=== PATIENT | male | born 1970 | race Caucasian/White ===

== ENCOUNTER → 2019-12-08 15:00 | Outpatient (BNVA) | payer MEDICARE, SELFPAY | PROVIDERS: Family Provider Family Medicine; PCP Family Medicine; Visit Provider Family Medicine | DX: I10 Essential (primary) hypertension (principal); Z13.1 Encounter for screening for diabetes mellitus; R73.03 Prediabetes; Z13.220 Encounter for screening for lipoid disorders; Z13.6 Encounter for screening for cardiovascular disorders; Z68.44 Body mass index [BMI] 60.0-69.9, adult | CPT/HCPCS: 80053; 80061; 83036; 84443 ==

== ENCOUNTER → 2020-11-23 09:02 | Outpatient (BNVA) | payer MEDICARE, SELFPAY | PROVIDERS: Family Provider Family Medicine; PCP Family Medicine; Visit Provider Family Medicine | DX: Z13.6 Encounter for screening for cardiovascular disorders (principal); R73.03 Prediabetes; L03.115 Cellulitis of right lower limb; I10 Essential (primary) hypertension; Z13.220 Encounter for screening for lipoid disorders; L27.0 Generalized skin eruption due to drugs and medicaments taken internally | CPT/HCPCS: 80053; 80061; 83036; 85025 ==

== ENCOUNTER → 2021-10-25 08:37 | Outpatient (BNVA) | payer MEDICARE, SELFPAY | PROVIDERS: Family Provider Family Medicine; PCP Family Medicine; Visit Provider Family Medicine | DX: M54.10 Radiculopathy, site unspecified (principal); F34.1 Dysthymic disorder; E11.9 Type 2 diabetes mellitus without complications; I10 Essential (primary) hypertension; Z13.220 Encounter for screening for lipoid disorders; Z13.6 Encounter for screening for cardiovascular disorders | CPT/HCPCS: 80053; 80061; 83036 ==

== ENCOUNTER → 2021-10-26 10:55 | Outpatient (BNVA) | payer MEDICARE, SELFPAY | PROVIDERS: Family Provider Family Medicine; PCP Family Medicine; Visit Provider Family Medicine | DX: M54.10 Radiculopathy, site unspecified (principal); M47.897 Other spondylosis, lumbosacral region | CPT/HCPCS: 72100 ==

== ENCOUNTER → 2022-04-27 08:42 | Outpatient (BNVA) | payer MEDICARE, SELFPAY | PROVIDERS: Family Provider Family Medicine; PCP Family Medicine; Visit Provider Anesthesiology Pain Medicine | DX: M47.816 Spondylosis without myelopathy or radiculopathy, lumbar region (principal); M51.16 Intervertebral disc disorders with radiculopathy, lumbar region; M79.605 Pain in left leg | CPT/HCPCS: 99205 ==

== ENCOUNTER → 2022-05-18 14:03 | Outpatient (BNVA) | payer MEDICARE, SELFPAY | PROVIDERS: Family Provider Family Medicine; PCP Family Medicine; Visit Provider Anesthesiology Pain Medicine | DX: M54.16 Radiculopathy, lumbar region (principal) | CPT/HCPCS: 64483; 64484; J1100; J3490 ==

== ENCOUNTER → 2022-06-14 09:13 | Outpatient (BNVA) | payer MEDICARE, SELFPAY | PROVIDERS: Family Provider Family Medicine; PCP Family Medicine; Visit Provider Family Medicine | DX: I10 Essential (primary) hypertension (principal); E11.9 Type 2 diabetes mellitus without complications; M54.10 Radiculopathy, site unspecified; F34.1 Dysthymic disorder; Z68.43 Body mass index [BMI] 50.0-59.9, adult; I16.0 Hypertensive urgency | CPT/HCPCS: 80053; 83036 ==

== ENCOUNTER → 2024-05-01 08:43 | Outpatient (BNVA) | payer MEDICARE, SELFPAY | PROVIDERS: Visit Provider Orthopaedic Surgery | DX: Z98.1 Arthrodesis status (principal) | CPT/HCPCS: 99024 ==

== ENCOUNTER 2024-05-21 07:50 | Outpatient (RCR) | payer MEDICARE, SELFPAY | END 2024-05-23 23:59 | disposition home or self-care (01) | LOC: MPT 07:50 | PROVIDERS: PCP Family Medicine; Visit Provider Student in an Organized Health Care Education/Training Program | DX: G81.91 Hemiplegia, unspecified affecting right dominant side (principal); M54.2 Cervicalgia; M25.511 Pain in right shoulder; Z47.89 Encounter for other orthopedic aftercare | CPT/HCPCS: 97110; 97162 ==

== ENCOUNTER → 2024-05-22 13:09 | Outpatient (BNVA) | payer MEDICARE, SELFPAY | PROVIDERS: PCP Family Medicine; Visit Provider Orthopaedic Surgery | DX: Z98.1 Arthrodesis status (principal) | CPT/HCPCS: 72040; 99024 ==

== ENCOUNTER 2024-05-24 06:00 | Outpatient (RCR) | payer MEDICARE, SELFPAY | END 2024-06-23 23:59 | disposition home or self-care (01) | LOC: MPT 06:00 | PROVIDERS: PCP Family Medicine; Visit Provider Student in an Organized Health Care Education/Training Program | DX: G95.20 Unspecified cord compression (principal) | CPT/HCPCS: 97110; 97112 ==

== ENCOUNTER 2024-06-24 06:00 | Outpatient (RCR) | payer MEDICARE, SELFPAY | END 2024-07-23 23:59 | disposition home or self-care (01) | LOC: MPT 06:00 | PROVIDERS: PCP Family Medicine; Visit Provider Student in an Organized Health Care Education/Training Program | DX: G95.20 Unspecified cord compression (principal) | CPT/HCPCS: 97110; 97112; 97140 ==

== ENCOUNTER → 2024-07-03 13:10 | Outpatient (BNVA) | payer MEDICARE, SELFPAY | PROVIDERS: PCP Family Medicine; Visit Provider Orthopaedic Surgery | DX: Z98.1 Arthrodesis status (principal) | CPT/HCPCS: 72040; 99024 ==

== ENCOUNTER 2024-07-24 05:00 | Outpatient (RCR) | payer MEDICARE, SELFPAY | END 2024-08-23 23:55 | disposition home or self-care (01) | LOC: MPT 05:00 | PROVIDERS: PCP Family Medicine; Visit Provider Student in an Organized Health Care Education/Training Program | DX: G95.20 Unspecified cord compression (principal) | CPT/HCPCS: 97110; 97140 ==

== ENCOUNTER 2024-08-21 14:11 | Inpatient (IN) | payer MEDICARE, SELFPAY ==
[2024-08-21] VITALS (19 sets, daily range): BP systolic 131–195; BP diastolic 84–127; PULSE 56–78; RESP 9–40; TEMP 36.4–36.5; O2SAT 92–100; BMI 56.9; BMI 57.3
--- NOTE | 2024-08-21 14:15 | CT_ITS ---
WS: [id number] CT scan of the head, 08/21/2024 Clinical Data: NAUSEA/VOMITING Comparison: None. DLP: 1143.[address] scans at [facility] use at least one of these dose optimization techniques: automated exposure control; mA and/or kV adjustment per patient size (includes targeted exams where dose is matched to clinical indication); or iterative reconstruction. Findings: The ventricular system is normal without shift. No recent infarct or hemorrhage is seen. There are no abnormal intracerebral masses. The cerebellum and brainstem are not remarkable. Bony windows of the skull and skull base show no fractures or erosions. The mastoid air cells, internal auditory canals, sella turcica, intraorbital contents, and paranasal sinuses are unremarkable. There are several soft tissue nodules in the subcutaneous tissue near the vertex. CT/CT head thrombolytic 82246 Impression: Negative CT scan of the head
--- NOTE | 2024-08-21 14:18 | CT_ITS ---
WS: [id number] CTA scan of the head and neck. Additional two-dimensional coronal and sagittal reconstruction along with MIP images was performed. 08/21/2024 Clinical Data: stroke like symptoms Comparison: None. DLP: 1379.[address] scans at [facility] use at least one of these dose optimization techniques: automated exposure control; mA and/or kV adjustment per patient size (includes targeted exams where dose is matched to clinical indication); or iterative reconstruction. Findings: The carotid arteries bifurcate normally into the internal carotid arteries. The vertebral arteries appear patent but small. There is no lymphadenopathy within the neck. The intracerebral circulation shows that the internal carotid arteries bifurcate into the anterior and middle cerebral arteries. The basilar arterial system is normal. No aneurysms are seen. There is no prevertebral soft tissue swelling. The cervical spine shows a anterior cervical disc fusion. The intraorbital contents, paranasal sinuses, internal auditory canals and sella turcica are normal. The parotid glands are normal. The parapharyngeal areas are unremarkable. The larynx is symmetrical. The thyroid gland shows normal enhancement. CT/CT angio headneck* [id number] Impression: 1. Normal carotid circulation of the neck with normal bifurcations. 2. Small but probably patent vertebral arteries. 3. Normal intracerebral circulation.
--- NOTE | 2024-08-21 14:20 | P.PNCC_ITS ---
Stroke Alert Activation ED Arrival Date: 08/21/24 ED Arrival Time: 14:10 ED Physican at Bedside: 14:10 Last Known Normal/at Baseline: 3-4 hours ago Other Last Known Well Infomation: He got into the car at 11:00 to come to an appointment for neurology checkup. As he was walking to the car he suddenly developed profound vertigo and vomited. He has experienced vertigo in the past but nothing like this. He saw an ENT 10 years ago and describes having had an Veronika maneuver at that time. He denies numbness, tingling or dysarthria. He denies diplopia although he has left 6th nerve palsy on exam and has diplopia on far left gaze. He has sustained nystagmus. His nystagmus is rotational, clockwise and worst on left gaze. He has incomplete abduction of the left eye on multiple exams, consistent with a left 6th nerve palsy and of great concern for stroke. Patient had previous cervical fusion. He previously herniated cervical disc by turning his head. I think we need to look for vertebral artery dissection prior to proceeding with TNK. Stroke Alert Activated by: Dr. Crow Stroke Alert Activation Time: 14:05 Stroke MD @ Bedside Time: 14:00 NIH Stroke Scale Time: 14:00 NIH stroke score NIHSS: Level Of Consciousness - 1a: 0 Level Of Consciousness Questions - 1b: Both Correct Level Of Consciousness Commands - 1c: Both Correct Best Gaze - 2: Partial Gaze Palsy Visual Groves - 3: No Visual Loss Facial Palsy - 4: Normal Motor Arm Right - 5: No Drift Motor Arm Left - 5: No Drift Motor Leg Right - 6: No Drift Motor Leg Left - 6: No Drift Limb Ataxia - 7: Absent Sensory - 8: Normal Best Language - 9: No Aphasia Dysarthia - 10: Normal Extinction And Inattention - 11: 0 Score: Total Score: 1 Stroke Alert Data/Treatment Time to CT of Head: 14:15 CT Results Time: 14:34 CT Impression: Normal Stroke Risk Factors: hypertension, obesity and diabetes mellitus tPA Started Date: 08/21/24 tPA Started Time: tPA Started - Time: 14:49 tPA Admin Prior to Arrival: No Patient & Family Educated on: Treament Plan and tPA Risks/Benefits Other Patient & Family Education: Patient's blood pressure was elevated and he received labetalol which imposed a delay on treatment Other Information: I called the stroke alert from the office and we took him straight to CT. His CT head was unremarkable. We could not access an IV. Finally the IV was accessed and we went ahead with CTA because he was on the table and it was only a few minutes delay. His blood pressure was elevated and he required labetalol prior to bolus of TNK. I informed him of the risk including 6 out of 100 risk of hemorrhage without increase in morbidity or mortality. Patient continues to display nystagmus that is worst in the left gaze with intermittent left 6th nerve palsy of concern for brainstem ischemia. His CTA does not include lower aspect of the vertebral arteries and cannot exclude a dissection. Radiologist report is pending. Critical Care Time Critical Care Time: 30 - 74 mins A&P Assessment and plan (1) Brainstem stroke: Patient presents with acute onset of severe ataxia to the point that he is unable to ambulate and sustained nystagmus. His nystagmus does not fatigue and is most prominent when he looks up and to the left. He has weakness of the left abductor consistent with left 6th nerve palsy. This is brainstem ischemia until proven otherwise. Patient received TNK with delay imposed by his hypertension, the placement of an IV (very difficult stick) and transferring him from the clinic to the CT scanner. 45 minutes Door to needle Plan Admit ICU, treat his vertigo with benzodiazepines and antinausea medication. The patient has lost quite a bit of weight on tirzepatide. Check vitamin levels. PDMP PDMP Reviewed: Not Reviewed Coding Level of Care Code Acute Code for [facility] Diagnoses Brainstem stroke I63.9
--- NOTE | 2024-08-21 14:27 | ED_ITS ---
HPI - Neuro Symptoms/Deficit 2 General: Chief Complaint: Neuro Symptoms/Deficit Stated Complaint: stroke alert Time Seen by Provider: 08/21/24 14:13 History of Present Illness: 54-year-old male presents to the emergen cy room as a stroke alert from the medical office building at Dr. Crow's office. He suddenly had episode of dizziness blurry vision nausea and vomiting when he got into a car. He states he chronically has dizziness but this is much worse than usual. His last known well was 11am . He previously had a cervical disc that required discectomy and fusion. Dr. Crow was concerned about a possible vertebral artery dissection or occlusion. Associated symptoms: Deny chest pain Related Data Home Medications ?Medication ?Instructions ?Recorded ?Confirmed acetaminophen 500 mg tablet 500 mg PO Q6H PRN Pain 08/21/24 (Tylenol Extra Strength) duloxetine 60 mg capsule,delayed 60 mg PO BEDTIME 07/2508/21/24 release ibuprofen 800 mg tablet 800 mg PO Q8H PRN Pain 08/2108/21/24 prednisolone acetate 1 % eye 1 drp ophthalmic (eye) BI D PRN 08/21/24 08/21/24 drops,suspension irritation tirzepatide 5 mg/0.5 mL 5 mg SUBCUT Q7D 08/21/24 subcutaneous pen injector (Davina) Previous Rx's ?Medication ?Instructions ?Recorded oxycodone 5 mg tablet 5 mg PO Q6H PRN pain 7 days #28 05/22/24 tabs Allergies Allergy/AdvReac Type Severity Reaction Status Date / Time No Known Allergies Allergy Verified 08/21/24 12:56 Review of Systems 2 Const: Denies: fever(s) or chills Card: Denies: chest pain Resp: Denies: dyspnea GI: Denies: abdominal pain : Denies: dysuria, urinary frequency or urinary urgency Musc: Denies: neck pain or back pain Skin/Breast: Denies: rash Neuro: Reports: dizziness PFSH ED 2 PFSH: Medical History Type 2 diabetes mellitus Right leg DVT Provoked, if occurs again he needs life long anticoag. Herniation of cervical intervertebral disc with radiculopathy MRSA colonization Hypertension ROCK (obstructive sleep apnea) Vision changes Surgical History Status post cervical spinal fusion S/P orchiopexy R. testicle Family History Mother Diverticulitis Social History Smoking and tobacco/nicotine status: unknown if used tobacco/nicotine Second hand smoke exposure: No Alcohol intake: current Alcohol intake frequency: holidays/special occasions only Substance/Drug Use: current Other substance/drug use details: Marijuana vaping or gummies for sleep. NIH stroke score 2 NIHSS: Level Of Consciousness - 1a: 0 Level Of Consciousness Questions - 1b: Both Correct Level Of Consciousness Commands - 1c: Both Correct Best Gaze - 2: Normal Visual Groves - 3: No Visual Loss Facial Palsy - 4: N ormal Motor Arm Right - 5: No Drift Motor Arm Left - 5: No Drift Motor Leg Right - 6: No Drift Motor Leg Left - 6: No Drift Limb Ataxia - 7: A bsent Sensory - 8: Normal Best Language - 9: No Aphasia Dysarthia - 10: Normal Extinction And Inattention - 11: 0 Score: Total Score: 0 Physical Exam 2 Const: COMMON NORMALS: no acute distress GENERAL APPEARANCE: cooperative and comfortable ORIENTATION/CONSCIOUSNESS: Yes awake, Yes oriented to person, Yes oriented to place and Yes oriented to time HENMT: COMMON NORMALS: normocephalic, atraumatic and hearing grossly normal bilaterally HEAD & SCALP: normocephalic and atraumatic Eye: OTHER: Rotary nystagmus with upward gaze nystagmus to the left and to the right more noticeable to the right side. Resp: COMMON NORMALS: normal respiratory effort, No retractions, No use of accessory muscles and clear to auscultation bilaterally AUSCULTATION: clear to auscultation bilaterally Cardio: COMMON NORMALS: regular rate, regular rhythm and No murmurs present (Cardio) RATE: regular rate RHYTHM: regular rhythm GI: COMMON NORMALS: Soft to palpation and No hepatosplenomegaly present A USCULTATION: Yes normoactive bowel sounds PALPATION: Yes Soft to palpation, No Tenderness to palpation present (GI), No Guarding due to palpation present (GI) and Yes No hepatosplenomegaly present Extremity: COMMON NORMALS: normal to inspection, capillary refill normal, no clubbing, cyanosis or edema, no calf tenderness and no pedal edema Neuro: SENSORIUM/ORIENTATION: Yes oriented to person, Yes oriented to place and Yes oriented to time Skin: COMMON NORMALS: no rashes or lesions noted GENERAL SKIN EXAM: no rashes or lesions noted Course 2 Vital Signs: Vital signs: Vital Signs Temperature 97.1 F L 08/22/24 04:13 Pulse Rate 59 L 08/22/24 05:43 Respiratory Rate 16 08/22/24 05:30 Blood Pressure 130/79 08/22/24 05:30 Pulse Oximetry 96 08/22/24 05:30 Oxygen Delivery Me thod Room Air 08/21/24 17:58 MDM - Neuro Symptoms/Deficit Medical Decision Making Stroke score is 0 presenting symptoms, concerning for posterior circulation stroke. Dr. Crow initially was seeing the patient in her office she did come to the emergency room and seen the patient he has very impressive nystagmus Dr. Crow is recommending TNKase this was given in the ER patient continues to be monitored he continued to have symptoms. I did give him a dose of Ativan to help with his dizziness which did improve slightly. Will admit discussed with hospitalist orders written Medical Records I reviewed the patient's medical records. Lab Data I reviewed the patient's lab results. 08/21/24 14:55 08/21/24 14:[address] 08/21/24 14:15 Impression: Negative CT scan of the head Head/Neck CTA 08/21/24 14:18 Impression: 1. Normal carotid circulation of the neck with normal bifurcations. 2. Small but probably patent vertebral arteries. 3. Normal intracerebral circulation. Laboratory Results WBC 7.97 10^3/uL (3.29-11.43) 08/21/24 14:55 RBC 4.90 10^6/uL (3.85-5.65) 08/21/24 14:55 Hgb 14.40 g/dL (11.27-16.99) 08/21/24 14:55 Hct 45.2 % (37-53) 08/21/24 14:55 MCV 92.2 fl (82-101) 08/21/24 14:55 MCH 29.4 pg (27-33) 08/21/24 14:55 MCHC 31.9 g/dL (30-55) 08/21/24 14:55 RDW 13.1 % (12.1-15.1) 08/21/24 14:55 Plt Count 197 10^3/cmm (157-399) 08/21/24 14:55 MPV 10.4 fL (7.4-10.4) 08/21/24 14:55 Neut % (Auto) 81.9 % 08/21/24 14:55 Lymph % (Auto) 12.5 % 08/21/24 14:55 Rawlins % (Auto) 4.0 % 08/21/24 14:55 Eos % (Auto) 0.8 % 08/21/24 14:55 Baso % (Auto) 0.4 % 08/21/24 14:55 Neut # (Auto) 6.53 10^3/uL (1.8-7.7) 08/21/24 14:55 Lymph # (Auto) 1.0 10^3/uL (0.8-4.8) 08/21/24 14:55 Rawlins # (Auto) 0.3 10^3/uL (0.2-0.9) 08/21/24 14:55 Eos # (Auto) 0.1 10^3/uL (0.0-0.8) 08/21/24 14:55 Baso # (Auto) 0.0 10^3/uL (0.0-0.1) 08/21/24 14:55 Nucleated RBC % (auto) 0 % 08/21/24 14:55 Nucleated RBCs # 0.0 /100WBC 08/21/24 14:55 ESR 31 mm/hr (0-10) H 08/21/24 14:55 PT 13.70 SECONDS (12.1-14.9) 08/21/24 14:55 INR 0.98 (0.8-1.2) 08/21/24 14:55 APTT 26.5 SECONDS (23.9-36.7) 08/21/24 14:55 Sodium 134 mmol/L (136-145) L 08/21/24 14:55 Potassium 4.2 mmol/L (3.5-5.1) 08/21/24 14:55 Chloride 98 mmol/L (98-107) 08/21/24 14:55 Carbon Dioxide 21 mmol/L (22-29) L 08/21/24 14:55 Anion Gap 19.2 (5-19) H 08/21/24 14:55 BUN 10 mg/dL (6-20) 08/21/24 14:55 Creatinine 0.7 mg/dL (0.7-1.2) 08/21/24 14:55 GFR Calculation 118.4 mL/min (90-130) 08/21/24 14:55 Glucose 130 mg/dL (65-115) H 08/21/24 14:55 Calculated Osmolality 279 mOsm/kg (285-295) L 08/21/24 14:55 Calcium 9.2 mg/dL (8.5-10.5) 08/21/24 14:55 Total Bilirubin 0.5 mg/dL (0.15-1.2) 08/21/24 14:55 AST 35 U/L (0-40) 08/21/24 14:55 ALT 33 U/L (0-41) 08/21/24 14:55 Alkaline Phosphatase 92 U/L (40-130) 08/21/24 14:55 C-Reactive Protein 12.3 mg/L (0.0-4.9) H 08/21/24 14:55 Total Protein 8.2 g/dL (6.6-8.7) 08/21/24 14:55 Albumin 4.4 g/dL (3.5-5.2) 08/21/24 14:55 Globulin 3.8 g/dL (1.3-4.6) 08/21/24 14:55 Procalcitonin 0.19 ng/mL (0-0.5) 08/21/24 14:55 All radiology interpretation(s) finalized by discharge Discharge Plan Discharge Patient Disposition: Admitted As Inpatient Admit Provider: Rico Baltazar Clinical Impression: Posterior circulation stroke, Type 2 diabetes mellitus Condition: Stable Coding Level of Care Code ED Psychology Instructor for Calvin Vyas
[2024-08-21] MEDS: iohexol 350 mg/mL 500 mL Btl (per mL) IV (14:44)
[2024-08-21] MEDS: tenecteplase 50mg Kit (STROKE) 25 MG IVP (14:49)
[2024-08-21] MEDS: labetalol 5 mg/mL SDV 20mL 10 MG IVP (14:55)
[2024-08-21 15:06] LABS: Basophils % 0.4 %; Eosinophils # 0.1 10^3/uL (0.0-0.8); Eosinophils % 0.8 %; Hematocrit 45.2 % (37-53); Lymphocytes % 12.5 %; Mean Corpuscular HGB Conc 31.9 g/dL (30-55); Mean Corpuscular Hemoglobin 29.4 pg (27-33); Mean Corpuscular Volume 92.2 fl (82-101); Mean Platelet Volume 10.4 fL (7.4-10.4); Monocytes # 0.3 10^3/uL (0.2-0.9); Neutrophils # 6.53 10^3/uL (1.8-7.7); Neutrophils % 81.9 %; Nucleated Red Blood Cells % 0 %; Platelet Count 197 10^3/cmm (157-399); Red Cell Distribution Width 13.1 % (12.1-15.1); White Blood Count 7.97 10^3/uL (3.29-11.43)
--- NOTE | 2024-08-21 15:14 | ECG_ITS ---
[facility]: 2024-08-21 Pat Name: Omar Isaac Department: Room: Gender: Male Lapel Padder: : 1970 Requested By: Evan Adame Order Number: [id number] Dino MD: Antonio Eric M.D. Measurements Intervals Huggins Rate: 56 P: 19 UT: 183 QRS: 22 QRSD: 87 T: 40 QT: 400 QTc: 388 Interpretive Statements SINUS BRADYCARDIA Compared to ECG 04/15/2024 17:00:33 Sinus rhythm no longer present Electronically Signed On 08-26-2024 11:49:52 CDT by Antonio Eric M.D. [email or web address]
[2024-08-21] MEDS: LORazepam 1 MG/0.5 ML injection IVP (15:19)
[2024-08-21 15:23] LABS: INR 0.98 (0.8-1.2)
[2024-08-21 15:24] LABS: Partial Thromboplastin Time 26.5 SECONDS (23.9-36.7)
[2024-08-21 15:27] LABS: Alanine Aminotransferase 33 U/L (0-41); Albumin Level 4.4 g/dL (3.5-5.2); Alkaline Phosphatase 92 U/L (40-130); Anion Gap 19.2 (5-19); Aspartate Amino Transferase 35 U/L (0-40); Blood Urea Nitrogen 10 mg/dL (6-20); Calcium 9.2 mg/dL (8.5-10.5); Carbon Dioxide 21 mmol/L (22-29); Chloride 98 mmol/L (98-107); Globulin 3.8 g/dL (1.3-4.6); Glomerular Filtration Rate 118.4 mL/min (90-130); Glucose 130 mg/dL (65-115); Osmolality Calculated 279 mOsm/kg (285-295); Potassium 4.2 mmol/L (3.5-5.1); Sodium 134 mmol/L (136-145); Total Bilirubin 0.5 mg/dL (0.15-1.2); Total Protein 8.2 g/dL (6.6-8.7)
--- NOTE | 2024-08-21 16:33 | P.HP_ITS ---
Providers/Chief Complaint 2 Primary Care Provider: David Segura MD Chief Complaint: stroke alert History of Present Illness Omar Isaac is a 54 year old male with a past medical history of ROCK on CPAP, history of cervical spinal cord compression, chronic back pain, who presents [facility] due to dizziness, nausea. Patient's last known well normal was about -02 22, he was getting into his car to come to Dr. Crow's office, for neurology follow-up, they cannot do the car he sat in the back passenger side seat, started developing dizziness, vertigo, nausea, vomiting, no focal weakness, no lightheadedness, dizziness, when they arrived at [facility], he was unable to get out of car due to dizziness so family members had to put him into a wheelchair he was able to get into the wheelchair with the help of family, and he was wheeled in to the neurologist office, he did report blurry vision, double vision at some point. Patient was seen by Dr. Crow at about 2 PM, stroke alert called at about 2:05, on examination patient had rotation of neck segments, diplopia on the left far gaze, concern for left nerve nerve palsy,, and a stroke scale 1, concern for posterior circulation stroke, CT head within normal limits, CTA head and neck within normal limits rule out vertebral artery dissection, after discussing risk benefits of TNKase, TNKase was given at about 2:49 PM, patient was examined, he is alert oriented x 3, following all commands still feeling a bit nauseous, still having some dizziness, he does have horizontal nystagmus, he does complain of double vision upon the lateral movement, on the left Review of Systems 2 Const: Denies: fever(s) or chills Card: Denies: chest pain Resp: Denies: dyspnea GI: Denies: abdominal pain Medications/Allergies Home Medications ?Medication ?Instructions ?Recorded ?Confirmed ?Last Taken ?Type acetaminophen 500 mg tablet 500 mg PO Q6H PRN Pain 08/21/24 Unknown History (Tylenol Extra Strength) oxycodone 5 mg tablet 5 mg PO Q6H PRN pain 7 days #28 05/22/24 08/21/24 Unknown Rx tabs duloxetine 60 mg capsule,delayed 60 mg PO BEDTIME 07/2508/21/24 Unknown History release ibuprofen 800 mg tablet 800 mg PO Q8H PRN Pain 08/2108/21/24 Unknown History prednisolone acetate 1 % eye 1 drp ophthalmic (eye) BI D PRN 08/21/24 08/21/24 Unknown History drops,suspension irritation tirzepatide 5 mg/0.5 mL 5 mg SUBCUT Q7D 08/21/2408/16/24 History subcutaneous pen injector (Davina) Allergies Allergy/AdvReac Type Severity Reaction Status Date / Time No Known Allergies Allergy Verified 08/21/24 12:56 PFSH Acute 2 PFSH: Medical History (Updated 08/21/24 @ 15:40 by Evan Wray DO) Type 2 diabetes mellitus Right leg DVT Provoked, if occurs again he needs life long anticoag. 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 testicle Family History Mother Diverticulitis Social History Smoking and tobacco/nicotine status: unknown if used tobacco/nicotine Second hand smoke exposure: No Alcohol intake: current Alcohol intake frequency: holidays/special occasions only Substance/Drug Use: current Other substance/drug use details: Marijuana vaping or gummies for sleep. Vitals/I&O/Wt Last Vital Signs Temp 97.5 F L 08/21/24 14:19 Pulse 56 L 08/21/24 15:27 Resp 15 08/21/24 15:24 BP 138/84 08/21/24 15:27 Pulse Ox 92 08/21/24 15:27 O2 Del Method Room Air 08/21/24 14:19 08/21/24 08/21/24 08/21/24 06:59 14:59 22:59 Intake Total 0 / 0 Balance 0 / 0 Weight last 48 hrs Weight 170.097 kg Weight 170.097 kg Physical Exam 2 Const: COMMON NORMALS: no acute distress and patient oriented x3 HENMT: COMMON NORMALS: normocephalic HEAD & SCALP: normocephalic Eye: COMMON NORMALS: Equal, round and reactive pupils present OTHER: Horizontal nystagmus Left cranial nerve palsy Double vision on left gaze Neck/C-Spine: COMMON NORMALS: no JVD Resp: COMMON NORMALS: normal respiratory effort, No retractions, No use of accessory muscles and clear to auscultation bilaterally AUSCULTATION: clear to auscultation bilaterally Cardio: COMMON NORMALS: no JVD, regular rate, regular rhythm, S1 normal heart sound present and S2 normal heart sound present RATE: regular rate RHYTHM: regular rhythm HEART SOUNDS: S1 normal heart sound present and S2 normal heart sound present GI: COMMON NORMALS: Normal to inspection, nondistended, normoactive bowel sounds present, Soft to palpation and non-tender PALPATION: Yes No hepatosplenomegaly present Extremity: COMMON NORMALS: no calf tenderness and no pedal edema Neuro: COMMON NORMALS: patient oriented x3, CN's II-XII intact bilaterally, moves all extremities, no focal motor deficits and no sensory deficits noted OTHER: Horizontal nystagmus Left cranial nerve palsy 6th nerve palsy Double vision on left gaze Facial droop No slurring of his words No focal weakness, equal strength bilateral upper lower extremities Psych: COMMON NORMALS: mental status grossly normal Data 08/21/24 14:55 08/21/24 14:55 A&P Assessment and plan (1) Posterior circulation stroke: (2) Brainstem stroke: Plan Acute CVA -Concern for brainstem stroke, posterior circulation stroke -Concerns for left cranial 6th nerve palsy, diplopia, horizontal nystagmus, nausea, dizziness -NIH stroke scale 1 -Last known well normal 11-11 30 a.m. -tPA given 2:49 p.m. - Status post TNKase - Head CT no acute findings - CT head and neck no acute findings Plan - Admit to ICU - TNKase precautions - Treat systolic blood pressure greater than 180 or diastolic greater than 105 - Telemetry monitoring - Neurochecks - NIH stroke scale - Repeat head CT in the morning - Start aspirin [address] within normal limits -*Lovenox for DVT prophylaxis if head CT within normal limits - Start atorvastatin - IV fluids - PT OT, speech therapy eval - Patient is DNR/DNI - SCDs for DVT prophylaxis for now PDMP PDMP Reviewed: Not Reviewed Attestations 2 Medical Necessity Statement*: Patient requires hospitalization acute CVA, status post TNKase, inpatient, greater than 2 midnights Diagnoses Posterior circulation stroke I63.50 Brainstem stroke I63.9
--- NOTE | 2024-08-21 17:37 | USCV_ITS ---
NOTE: Report was unsigned for reason: Order was edited. Original Signature date and time was: 08/22/24 @ 1446 Omar Isaac Age: 54 Gender: M : 1970 Exam Date: 08/21/2024 22:48 Ordering Phys: Rico Baltazar MD Technologist: KATHE Exam Location: [facility] [place] Indication: acute stroke, morbid obesity, 5ft 8in, 375lbs, ROCK CPAP dependent in ICU-6 BP: 171 / 127 HR: 57 Rhythm: Sinus Technical Quality: poor quality even with [employer] MEASUREMENTS (Male / Female) Normal Values 2D ECHO LV Diastolic Diameter PLAX 4.4 cm 4.2 - 5.9 / 3.9 - 5.3 cm IVS Diastolic Thickness 1.6 cm 0.6 - 1.0 / 0.6 - 0.9 cm IVS Systolic Thickness 1.8 cm LVPW Diastolic Thickness 2.0 cm 0.6 - 1.0 / 0.6 - 0.9 cm LVPW Systolic Thickness 2.2 cm LVOT Diameter 1.9 cm LV Ejection Fraction 2D Teich 62.0 % LV Ejection Fraction MOD 4C 63.7 % LV Ejection Fraction MOD 2C 58.4 % LV Ejection Fraction 2C AL 58.7 % LA Diameter 3.5 cm Aorta at Sinotubular Diameter 2.7 cm IVC Diameter 1.4 cm DOPPLER AV Peak Velocity 138.0 cm/s LVOT Peak Velocity 93.0 cm/s AV Area Cont Eq vti 2.1 cm squared AV Area Cont Eq pk 1.9 cm squared MV Peak Velocity 102.0 cm/s MV Area PHT 3.1 cm squared Mitral E to A Ratio 1.0 FINDINGS Left Ventricle Right Ventricle Right Atrium Left Atrium Mitral Valve Aortic Valve Tricuspid Valve Pulmonic Valve Pericardium Aorta IVC CONCLUSIONS Technically very limited quality echocardiogram because of poor ultrasonic windows. LV systolic function is grossly normal Valvular stuctures are not visualized. Antonio Eric MD (Electronically Signed) Final Date: 22 Aug 2024 14:46 S MTDD
[2024-08-21 17:54] LABS: Procalcitonin 0.19 ng/mL (0-0.5)
[2024-08-21 18:08] LABS: C Reactive Protein 12.3 mg/L (0.0-4.9)
[2024-08-21 18:26] LABS: Erythrocyte Sedimentation Rate 31 mm/hr (0-10)
[2024-08-21] MEDS: sodium chloride 0.9% 1,000 ML 100 ML IV (18:44)
[2024-08-21] MEDS: atorvastatin 40 mg Tablet 20 MG PO (20:48)
[2024-08-21] MEDS: duloxetine 60 mg Capsule PO (20:48)
[2024-08-22] VITALS (25 sets, daily range): BP systolic 130–195; BP diastolic 64–100; PULSE 57–73; RESP 14–27; TEMP 36.2–36.8; O2SAT 90–97
[2024-08-22] MEDS: sodium chloride 0.9% 1,000 ML 100 ML IV (04:10)
[2024-08-22 06:52] LABS: Chol HDL Ratio 4.86 mg/dL (1.0-5.00); Cholesterol 180 mg/dL (0-200); HDL Cholesterol 37 mg/dL (60-100); LDL Cholesterol Calculated 122 mg/dL (50-129); Triglycerides 107 mg/dL (0-150)
--- NOTE | 2024-08-22 06:59 | PC.NURSE ---
residency program coordinator note- 08/21-responded and participated in stroke alert, gave patient and family stroke education book.
--- NOTE | 2024-08-22 07:05 | PC.NURSE ---
Shift change NIH completed.
[2024-08-22 07:10] LABS: Estmated Average Glucose 117; Hemoglobin A1C 5.7 % (4.0-6.0)
--- NOTE | 2024-08-22 09:00 | MR_ITS ---
WS: [id number] MRI HEAD WITH CONTRAST TECHNIQUE: Sagittal T1, T2 axial, T2 axial FLAIR, axial susceptibility weighted imaging, axial diffusion weighted images, and coronal T2 images were obtained. Pre and post-T1 axial and post T1 coronal images. ADC and FSPGR images. CLINICAL INFORMATION: cva, vasculitis COMPARISON: CT 08/21/2024 FINDINGS: Some images degraded by motion artifact. Fast imaging was performed. Scattered areas of punctate susceptibility artifact only seen on the fast T2 imaging likely due to technique artifact. No abnormalities on the gradient imaging. No evidence of restricted diffusion to suggest acute ischemia. No hemosiderin on the gradient imaging. Normal posterior fossa. Normal vascular flow voids at the skull base. No extra-axial fluid collections. No evidence of mass or mass effect. Mastoid air cells are well aerated. Normal posterior nasopharynx. No abnormal gadolinium enhancement considering motion artifact. Normal dural venous sinuses. MR/MR head wo/w con [id number] IMPRESSION: Some images degraded by motion artifact. Fast imaging was performed which somewhat limits evaluation. No acute intracranial findings
[2024-08-22] MEDS: prednisoLONE 1% Op Susp 5 mL Btl 1 DROP EYE-BOTH ×2 (09:11→18:13)
[2024-08-22] MEDS: gadobenate dimeglumine 20 mL vial IV (10:11)
--- NOTE | 2024-08-22 15:55 | PC.SOCIAL ---
IMM updated IMM dated and initialed copy given to patient and Copy placed in chart.
--- NOTE | 2024-08-22 16:53 | CTR_ITS ---
PROCEDURE INFORMATION: Exam: CT Head Without Contrast Exam date and time: 08/22/2024 5:34 PM Age: 54 years old Clinical indication: Altered mental status/memory loss; Confusion or disorientation; Additional info: 24 hour sp tpa TECHNIQUE: Imaging protocol: Computed tomography of the head without contrast. Radiation optimization: All CT scans at this facility use at least one of these dose optimization techniques: automated exposure control; mA and/or kV adjustment per patient size (includes targeted exams where dose is matched to clinical indication); or iterative reconstruction. COMPARISON: MR head wo/w con [id number] 08/22/2024 9:55 AM RADIATION DOSE METRICS: Total DLP (mGy-cm): 1133.08 FINDINGS: Brain: The size and configuration of the ventricular system and cortical sulci are within normal limits for age. No acute intracranial hemorrhage or significant mass effect is seen. Cerebral ventricles: Normal in size, for age, and midline in position. Paranasal sinuses: There is mild chronic appearing mucosal inflammation in the ethmoid air cells bilaterally. No air-fluid levels are seen. Mastoid air cells: Visualized mastoid air cells are well aerated. Bones: Intact. No acute fracture detected. Soft tissues: Unremarkable. CT/CT head wo con* [id number] IMPRESSION: No acute intracranial process appreciated. If there is persistent clinical concern, MRI may be helpful for further evaluation.
--- NOTE | 2024-08-22 17:04 | P.PN_ITS ---
Subjective 2 Subjective: Patient was seen this morning, currently alert oriented x 3, following all commands, no nausea, vomiting, no fevers, chills, no neck pain, neck stiffness, denies any dizziness, denies any vertigo, does report intermittent blurry vision, no paresthesias, no focal weakness, no receptive aphasia, no productive aphasia, slurring of his words Vitals/I&O/Wt Last Vital Signs Temp 98.2 F 08/22/24 12:00 Pulse 69 08/22/24 13:00 Resp 19 H 08/22/24 13:00 BP 171/81 08/22/24 13:00 Pulse Ox 91 08/22/24 13:00 O2 Del Method Room Air 08/22/24 13:00 08/22/24 08/22/24 08/22/24 06:59 14:59 22:59 Intake Total 943.333 / 943.333 350 / 350 Output Total 700 / 700 1100 / 1100 Balance 243.333 / 243.333 -750 / -750 Weight last 48 hrs Weight 170.097 kg Weight 171 kg Weight 170.097 kg Weight 170.097 kg Physical Exam 2 Const: COMMON NORMALS: no acute distress and patient oriented x3 Resp: COMMON NORMALS: normal respiratory effort, No retractions, No use of accessory muscles and clear to auscultation bilaterally AUSCULTATION: clear to auscultation bilaterally Cardio: COMMON NORMALS: regular rate, regular rhythm, S1 normal heart sound present and S2 normal heart sound present RATE: regular rate RHYTHM: r egular rhythm HEART SOUNDS: S1 normal heart sound present and S2 normal heart sound present GI: COMMON NORMALS: Normal to inspection, nondistended, normoactive bowel sounds present and non-tender Extremity: COMMON NORMALS: no calf tenderness and no pedal edema Neuro: COMMON NORMALS: patient oriented x3, CN's II-XII intact bilaterally, moves all extremities and no focal motor deficits Psych: COMMON NORMALS: mental status grossly normal Data 08/21/24 14:55 08/21/24 14:55 A&P Assessment and plan (1) Posterior circulation stroke: (2) Brainstem stroke: Plan Acute CVA -Concern for brainstem stroke, posterior circulation stroke -Concerns for left cranial 6th nerve palsy, diplopia, horizontal nystagmus, nausea, dizziness -NIH stroke scale 1 -Last known well normal 11-11 30 a.m. -tPA given 2:49 p.m. - Status post TNKase - Head CT no acute findings - CT head and neck no acute findings - MRI brain no acute findings -Echocardiogram LV systolic function is normal Plan - Repeat head CT 24 hours status post tPA - TNKase precautions - Treat systolic blood pressure greater than 180 or diastolic greater than 105 - Telemetry monitoring - Neurochecks - NIH stroke scale - Start aspirin [address] within normal limits -*Lovenox for DVT prophylaxis if head CT within normal limits - Start atorvastatin - IV fluids discontinued - PT OT, speech therapy eval - Patient is DNR/DNI - SCDs for DVT prophylaxis for now Plan for today moved to medical floors, PT OT, speech therapy eval, PDMP PDMP Reviewed: Not Reviewed Attestations 2 Medical Necessity Statement*: Patient requires hospitalization for acute CVA, posterior circulation stroke Diagnoses Posterior circulation stroke I63.50 Brainstem stroke I63.9
[2024-08-22 18:34] LABS: INR 1.01 (0.8-1.2)
[2024-08-22 18:35] LABS: Fibrinogen 450 mg/dL (174-498)
[2024-08-22 18:37] LABS: Alanine Aminotransferase 28 U/L (0-41); Albumin Level 4.1 g/dL (3.5-5.2); Alkaline Phosphatase 76 U/L (40-130); Anion Gap 16.3 (5-19); Aspartate Amino Transferase 27 U/L (0-40); Blood Urea Nitrogen 9 mg/dL (6-20); Calcium 9.3 mg/dL (8.5-10.5); Carbon Dioxide 26 mmol/L (22-29); Chloride 99 mmol/L (98-107); Globulin 3.6 g/dL (1.3-4.6); Glomerular Filtration Rate 118.4 mL/min (90-130); Glucose 98 mg/dL (65-115); Osmolality Calculated 283 mOsm/kg (285-295); Potassium 4.3 mmol/L (3.5-5.1); Sodium 137 mmol/L (136-145); Total Bilirubin 0.6 mg/dL (0.15-1.2); Total Protein 7.7 g/dL (6.6-8.7)
[2024-08-22] MEDS: perflutren protein-a microsphr 0.22 mg/mL SDV 3 mL IV (18:37)
--- NOTE | 2024-08-22 18:53 | PC.NURSE ---
Shift summary: NIH completed . score of 0. No nystigmus noted at this time. Pt continues to state, as he has all day, he feels on the verge. No nausea noted. the first time out of bed slight dizziness noted but i resolved. His gait is steady he bears his weight well. Passed the speech therapy, now on regular diet. MRI completed today. [address] taken awaiting report. Pt has decent/appropriate appetite. He has urinated twice for a total of 1900. NO Bm noted. Family and friend have been in to visit. He uses his home CPAP when resting with eyes closed.
[2024-08-22 20:48] LABS: Basophils % 0.4 %; Eosinophils # 0.1 10^3/uL (0.0-0.8); Eosinophils % 1.2 %; Hematocrit 43.5 % (37-53); Lymphocytes # 1.5 10^3/uL (0.8-4.8); Lymphocytes % 21.7 %; Mean Corpuscular HGB Conc 32.2 g/dL (30-55); Mean Corpuscular Hemoglobin 29.5 pg (27-33); Mean Corpuscular Volume 91.6 fl (82-101); Mean Platelet Volume 10.3 fL (7.4-10.4); Monocytes # 0.4 10^3/uL (0.2-0.9); Monocytes % 5.2 %; Neutrophils # 4.75 10^3/uL (1.8-7.7); Neutrophils % 71.2 %; Nucleated Red Blood Cells % 0 %; Platelet Count 203 10^3/cmm (157-399); Red Blood Count 4.75 10^6/uL (3.85-5.65); Red Cell Distribution Width 13.1 % (12.1-15.1); White Blood Count 6.68 10^3/uL (3.29-11.43)
[2024-08-22] MEDS: duloxetine 60 mg Capsule PO (22:02)
[2024-08-22] MEDS: atorvastatin 40 mg Tablet PO (22:02)
[2024-08-22] MEDS: enoxaparin 40 mg/0.4 mL Syringe SUBCUT (22:02)
[2024-08-22] MEDS: aspirin 81 mg EC Tablet PO (22:02)
[2024-08-23] VITALS (17 sets, daily range): BP systolic 137–175; BP diastolic 75–117; PULSE 61–75; RESP 13–22; TEMP 36.4–37.1; O2SAT 90–94
[2024-08-23 04:21] LABS: Basophils % 0.3 %; Eosinophils # 0.1 10^3/uL (0.0-0.8); Eosinophils % 1.3 %; Hematocrit 42.4 % (37-53); Lymphocytes # 1.6 10^3/uL (0.8-4.8); Lymphocytes % 25.3 %; Mean Corpuscular HGB Conc 31.4 g/dL (30-55); Mean Corpuscular Hemoglobin 29.4 pg (27-33); Mean Corpuscular Volume 93.8 fl (82-101); Mean Platelet Volume 10.8 fL (7.4-10.4); Monocytes # 0.4 10^3/uL (0.2-0.9); Monocytes % 6.7 %; Neutrophils # 4.12 10^3/uL (1.8-7.7); Neutrophils % 66.1 %; Nucleated Red Blood Cells % 0 %; Platelet Count 187 10^3/cmm (157-399); Red Blood Count 4.52 10^6/uL (3.85-5.65); Red Cell Distribution Width 13.2 % (12.1-15.1); White Blood Count 6.24 10^3/uL (3.29-11.43)
[2024-08-23 04:45] LABS: Anion Gap 14.1 (5-19); Blood Urea Nitrogen 9 mg/dL (6-20); Calcium 9.3 mg/dL (8.5-10.5); Carbon Dioxide 27 mmol/L (22-29); Chloride 99 mmol/L (98-107); Creatinine Clr Calc Pharmacy 166.6482; Glomerular Filtration Rate 101.5 mL/min (90-130); Glucose 117 mg/dL (65-115); Osmolality Calculated 282 mOsm/kg (285-295); Potassium 4.1 mmol/L (3.5-5.1); Sodium 136 mmol/L (136-145)
[2024-08-23] MEDS: ondansetron 2 mg/ML SDV 2 mL 4 MG IVP (05:39)
[2024-08-23] MEDS: amlodipine 5 mg Tablet PO (09:07)
[2024-08-23] MEDS: chlorthalidone 25 mg Tablet PO (12:35)
--- NOTE | 2024-08-23 13:52 | PC.NURSE ---
Education both written and verbal provided to patient with two family/care takers at bedside regarding discharge instructions, medications, follow up appointments, blood pressure monitoring, S/S stroke and when to call 911. Patient and family returned demonstration of teaching. No questions at the time of discharge. Medications sent to patients preferred pharmacy.
--- NOTE | 2024-08-23 14:04 | P.DS_ITS ---
Discharge Providers Date of Admission: 08/21/24 16:57 Date of Discharge: August 23, 2024 Attending Provider at Admission: Rico Baltazar MD Attending Provider at Discharge: Rico Baltazar MD Primary Care Provider: David Segura MD Diagnoses at Discharge Discharge Diagnosis (1) Posterior circulation stroke: Status: Acute (2) Brainstem stroke: Status: Acute Reason for Visit Reason for Visit: stroke alert Hospital Course Hospital Course Omar Isaac is a 54 year old male with a past medical history of ROCK on CPAP, history of cervical spinal cord compression, chronic back pain, who presents [facility] due to dizziness, nausea. Patient's last known well normal was about 02-03, he was getting into his car to come to Dr. Crow's office, for neurology follow-up, they cannot do the car he sat in the back passenger side seat, started developing dizziness, vertigo, nausea, vomiting, no focal weakness, no lightheadedness, dizziness, when they arrived at [facility], he was unable to get out of car due to dizziness so family members had to put him into a wheelchair he was able to get into the wheelchair with the help of family, and he was wheeled in to the neurologist office, he did report blurry vision, double vision at some point. Patient was seen by Dr. Crow at about 2 PM, stroke alert called at about 2:05, on examination patient had rotation of neck segments, diplopia on the left far gaze, concern for left nerve nerve palsy,, and a stroke scale 1, concern for posterior circulation stroke, CT head within normal limits, CTA head and neck within normal limits rule out vertebral artery dissection, after discussing risk benefits of TNKase, TNKase was given at about 2:49 PM, patient was examined, he is alert oriented x 3, following all commands still feeling a bit nauseous, still having some dizziness, he does have horizontal nystagmus, he does complain of double vision upon the lateral movement, on the left Acute CVA -Concern for brainstem stroke, posterior circulation stroke -Concerns for left cranial 6th nerve palsy, diplopia, horizontal nystagmus, nausea, dizziness -NIH stroke scale 1 -Last known well normal 02-03 30 a.m. -tPA given 2:49 p.m. - Status post TNKase - Head CT no acute findings - CT head and neck no acute findings - MRI brain no acute findings -Echocardiogram LV systolic function is normal - Patient received inpatient blood pressure monitoring, telemetry monitoring, PT OT, speech therapy eval - Overall patient's clinical condition resolved - Relative asymptomatic on discharge - Cranials nerve palsy has resolved, no horizontal nystagmus - Will be discharged on aspirin, statin - Follow-up with neurology as outpatient - Discharge with event monitor in place Physical Exam Const: COMMON NORMALS: no acute distress and patient oriented x3 Eye: COMMON NORMALS: Equal, round and reactive pupils present and EOMs intact bilaterally PUPIL: Yes Equal, round and reactive pupils present Resp: COMMON NORMALS: normal respiratory effort, No retractions, No use of accessory muscles and clear to auscultation bilaterally AUSCULTATION: clear to auscultation bilaterally Cardio: COMMON NORMALS: regular rate, regular rhythm, S1 normal heart sound present and S2 normal heart sound present RATE: regular rate RHYTHM: regular rhythm HEART SOUNDS: S1 normal heart sound present and S2 normal heart sound present GI: COMMON NORMALS: Normal to inspection, nondistended, normoactive bowel sounds present and non-tender Extremity: COMMON NORMALS: no pedal edema Neuro: COMMON NORMALS: patient oriented x3, CN's II-XII intact bilaterally and moves all extremities Psych: COMMON NORMALS: mental status grossly normal Discharge Data Studies Completed and Pending Completed Studies During Hospitalization Category Date Time Status CT angio headneck* [id number] Stat Cat Scan 08/21/24 14:[address] head thrombolytic [id number] Stat Cat Scan 08/21/24 14:[address] head wo con* [id number] Stat Cat Scan 08/22/24 16:53 Completed MR head wo/w con [id number] Routine MRI 08/22/24 09:00 Completed CV. echo complete* [id number] Routine Ultrasound 08/21/24 17:37 Completed Pending at discharge Category Date Time Status Drug Screen, Urine Stat Lab 08/21/24 14:39 Ordered Urinalysis Stat Lab 08/21/24 14:39 Ordered Radiology Impressions Head/Neck CTA 08/21/24 14:18 Impression: 1. Normal carotid circulation of the neck with normal bifurcations. 2. Small but probably patent vertebral arteries. 3. Normal intracerebral circulation. Head MRI 08/22/24 09:00 IMPRESSION: Some images degraded by motion artifact. Fast imaging was performed which somewhat limits evaluation. No acute intracranial findings Head CT 08/22/24 16:53 IMPRESSION: No acute intracranial process appreciated. If there is persistent clinical concern, MRI may be helpful for further evaluation. Laboratory Results WBC 6.24 10^3/uL (3.29-11.43) 08/23/24 03:48 Corrected WBC Cancelled 08/22/24 18:09 RBC 4.52 10^6/uL (3.85-5.65) 08/23/24 03:48 Hgb 13.30 g/dL (11.27-16.99) 08/23/24 03:48 Hct 42.4 % (37-53) 08/23/24 03:48 MCV 93.8 fl (82-101) 08/23/24 03:48 MCH 29.4 pg (27-33) 08/23/24 03:48 MCHC 31.4 g/dL (30-55) 08/23/24 03:48 RDW 13.2 % (12.1-15.1) 08/23/24 03:48 Plt Count 187 10^3/cmm (157-399) 08/23/24 03:48 MPV 10.8 fL (7.4-10.4) H 08/23/24 03:48 Gran % Cancelled 08/22/24 18:09 Neut % (Auto) 66.1 % 08/23/24 03:48 Lymph % (Auto) 25.3 % 08/23/24 03:48 [place] % (Auto) 6.7 % 08/23/24 03:48 Eos % (Auto) 1.3 % 08/23/24 03:48 Baso % (Auto) 0.3 % 08/23/24 03:48 Neut # (Auto) 4.12 10^3/uL (1.8-7.7) 08/23/24 03:48 Lymph # (Auto) 1.6 10^3/uL (0.8-4.8) 08/23/24 03:48 [place] # (Auto) 0.4 10^3/uL (0.2-0.9) 08/23/24 03:48 Eos # (Auto) 0.1 10^3/uL (0.0-0.8) 08/23/24 03:48 Baso # (Auto) 0.0 10^3/uL (0.0-0.1) 08/23/24 03:48 Absolute Gran (auto) Cancelled 08/22/24 18:09 Nucleated RBC % (auto) 0 % 08/23/24 03:48 Nucleated RBCs # 0.0 /100WBC 08/23/24 03:48 ESR 31 mm/hr (0-10) H 08/21/24 14:55 PT 14.10 SECONDS (12.1-14.9) 08/22/24 18:09 INR 1.01 (0.8-1.2) 08/22/24 18:09 APTT 26.5 SECONDS (23.9-36.7) 08/21/24 14:55 Fibrinogen 450 mg/dL (174-498) 08/22/24 18:09 Sodium 136 mmol/L (136-145) 08/23/24 03:48 Potassium 4.1 mmol/L (3.5-5.1) 08/23/24 03:48 Chloride 99 mmol/L (98-107) 08/23/24 03:48 Carbon Dioxide 27 mmol/L (22-29) 08/23/24 03:48 Anion Gap 14.1 (5-19) 08/23/24 03:48 BUN 9 mg/dL (6-20) 08/23/24 03:48 Creatinine 0.8 mg/dL (0.7-1.2) 08/23/24 03:48 GFR Calculation 101.5 mL/min (90-130) 08/23/24 03:48 Glucose 117 mg/dL (65-115) H 08/23/24 03:48 Estimat Average Glucose 117 08/22/24 05:59 Hemoglobin A1c 5.7 % (4.0-6.0) 08/22/24 05:59 Calculated Osmolality 282 mOsm/kg (285-295) L 08/23/24 03:48 Calcium 9.3 mg/dL (8.5-10.5) 08/23/24 03:48 Total Bilirubin 0.6 mg/dL (0.15-1.2) 08/22/24 18:09 AST 27 U/L (0-40) 08/22/24 18:09 ALT 28 U/L (0-41) 08/22/24 18:09 Alkaline Phosphatase 76 U/L (40-130) 08/22/24 18:09 C-Reactive Protein 12.3 mg/L (0.0-4.9) H 08/21/24 14:55 Total Protein 7.7 g/dL (6.6-8.7) 08/22/24 18:09 Albumin 4.1 g/dL (3.5-5.2) 08/22/24 18:09 Globulin 3.6 g/dL (1.3-4.6) 08/22/24 18:09 Triglycerides 107 mg/dL (0-150) 08/22/24 05:59 Cholesterol 180 mg/dL (0-200) 08/22/24 05:59 LDL Cholesterol, Calc 122 mg/dL (50-129) 08/22/24 05:59 HDL Cholesterol 37 mg/dL (60-100) L 08/22/24 05:59 LDL/HDL Ratio 3.30 RATIO (0.00-3.22) H 08/22/24 05:59 Cholesterol/HDL Ratio 4.86 mg/dL (1.0-5.00) 08/22/24 05:59 Procalcitonin 0.19 ng/mL (0-0.5) 08/21/24 14:55 Vitals Last Vital Signs Temp 98.7 F 08/23/24 13:42 Pulse 65 08/23/24 13:42 Resp 14 08/23/24 13:42 BP 163/91 08/23/24 13:42 Pulse Ox 91 08/23/24 13:42 O2 Del Method Room Air 08/23/24 13:00 Discharge Plan Discharge Patient Disposition: Home Condition: Stable Prescriptions: New atorvastatin 40 mg Tablet 40 mg PO BEDTIME 30 Days Qty: 30 0RF chlorthalidone 25 mg Tablet 25 mg PO DAILY 30 Days Qty: 30 0RF amlodipine 5 mg Tablet 5 mg PO DAILY 30 Days Qty: 30 0RF aspirin 81 mg Tablet,Delayed Release (Dr/Ec) 81 mg PO DAILY 30 Days Qty: 30 0RF clonidine HCl 0.1 mg tablet 0.1 mg PO BID PRN (Reason: hypertensive emergency) 30 Days Qty: 60 0RF Rx Instructions: For SBP greater than 180 or DBP greater than 100 Continued acetaminophen [Tylenol Extra Strength] 500 mg tablet 500 mg PO Q6H PRN (Reason: Pain) oxycodone 5 mg tablet 5 mg PO Q6H PRN (Reason: pain) 7 Days Qty: 28 0RF duloxetine 60 mg capsule,delayed release(DR/EC) 60 mg PO BEDTIME prednisolone acetate 1 % drops,suspension 1 drp ophthalmic (eye) BID PRN (Reason: irritation) Held Mounjaro 5 mg/0.5 mL pen injector 5 mg SUBCUT Q7D Hold Instructions: Resume on 09/01/24. Rx Instructions: Sunday Discontinued ibuprofen 800 mg tablet 800 mg PO Q8H PRN (Reason: Pain) Discharge Orders: Discharge Order (Routine); Ordered 08/23/24 Ordered By: Rico Baltazar Other Ambulatory Orders: MCT/Event Monitor 30 Days (Routine) Timeframe: 1 Day Facility: [facility] - Location: Radiology Ordered By: Rico Baltazar Referrals: David Segura MD [Primary Care Provider, Family Practice] Discharge Diet: Cardiac Discharge Activity: Resume usual activity Patient Instructions: Clonidine (By mouth) (Catapres, Kapvay, Kapvay Dose Pack), Aspirin (By mouth) (Felice Extra Strength, Felice Aspirin Children's,..., Chlorthalidone (By mouth) (Taliton), Amlodipine (By mouth) (Hypertenipine-2.5, Norvasc, Norliqva), Atorvastatin (By mouth) (Lipitor, Atorvaliq), Opioid Safety Activity Restrictions/Additional Instructions: - If any recurrent strokelike symptoms please call [phone] - Please record your blood pressures and a blood pressure log twice daily - Please follow-up with your primary care provider in 1 week for blood pressure check - I provided clonidine to be used as needed for hypertensive urgency -If your systolic blood pressures greater than 180 or diastolic blood pressure is greater than 100 please use clonidine as prescribed. Please call Sunday to schedule a follow-up appointment with your primary care provider. Discharge Attestations Time Spent in Discharge Care*: greater than 30 min Quality Metrics Clinical Quality Measures [ Cerebrovascular Accident { Contraindication to Antithrombotic: None; antithrombotic prescribed; Contraindication to Anticoagulation: None; anticoagulation prescribed; Contraindication to Statin: None; Statin prescribed;}] Coding Level of Care Code 15877 Total time (in minutes) for Discharge: 45 Diagnoses Posterior circulation stroke I63.50 Brainstem stroke I63.9
--- NOTE | 2024-08-23 14:21 | PC.NURSE ---
Dr. Baltazar placed order for patient to see cardiology for an 30 day event monitor. Order has been faxed to cardiology. Patient has been notified via telephone of this order and how to follow up with cardiology. Patient had no questions at the time of phone call.
--- NOTE | 2024-08-28 11:11 | PC.NURSE ---
branch coordinator follow up phone call completed- patient has noticeable speech difficulty but able to communicate and is pretty easy to understand. He states along with speech he has drooping moth and dry eye. Patient hasn't made follow up appointment with Neurology yet, I sent a message to scheduling to get him in soon. He sees his PCP September 01. He decided to stop taking the prescribed Prednisone due to blood sugars being just under 400 consistently. Encouraged him to discuss with his PCP. He is taking his blood pressures at home but not recording them. His last was 160/82 that he could recall. I suggested writing them down as a log and taking them to his follow up appointments as well as his Blood Sugar readings. He admits he has not been very active since returning home. Referred him to the stroke education book for recommended activity.
== END 2024-08-23 13:55 | disposition home or self-care (01) | DRG 62 ==
LOC: ER 15:40 → ICU 16:57
PROVIDERS: Admitting Provider Family Medicine; Emergency Provider Family Medicine; PCP Family Medicine; Visit Provider Family Medicine
DX: I63.539 Cerebral infarction due to unspecified occlusion or stenosis of unspecified posterior cerebral artery (principal); Z68.43 Body mass index [BMI] 50.0-59.9, adult; H53.2 Diplopia; R27.0 Ataxia, unspecified; R29.701 NIHSS score 1; G47.33 Obstructive sleep apnea (adult) (pediatric); G89.29 Other chronic pain; M54.9 Dorsalgia, unspecified; H49.20 Sixth [abducent] nerve palsy, unspecified eye; H55.00 Unspecified nystagmus; I10 Essential (primary) hypertension; Z66 Do not resuscitate; E66.9 Obesity, unspecified; Z79.891 Long term (current) use of opiate analgesic; Z99.89 Dependence on other enabling machines and devices; Z98.1 Arthrodesis status; Z22.322 Carrier or suspected carrier of Methicillin resistant Staphylococcus aureus
CPT/HCPCS: 36415; 70450; 70496; 70498; 70553; 80048; 80053; 80061; 83036; 84145; 85025; 85384; 85610; 85651; 85730; 86140; 92523; 92610; 93005; 93306; 93350; 93352; 94664; 96372; 96374; 96375; 96376; 97110; 97116; 97162; 97165; 97530; 99285; J1650; J2060; J2405; J3101; J3490; J7030; J9999

== ENCOUNTER 2024-08-24 06:30 | Outpatient (RCR) | payer MEDICARE, SELFPAY | END 2024-09-22 23:59 | disposition home or self-care (01) | LOC: MPT 06:30 | PROVIDERS: PCP Family Medicine; Visit Provider Student in an Organized Health Care Education/Training Program | DX: G81.91 Hemiplegia, unspecified affecting right dominant side (principal); G95.20 Unspecified cord compression | CPT/HCPCS: 97110; 97140 ==

== ENCOUNTER 2024-09-23 05:00 | Outpatient (RCR) | payer MEDICARE, SELFPAY | END 2024-10-23 23:59 | disposition home or self-care (01) | LOC: MPT 05:00 | PROVIDERS: PCP Family Medicine; Visit Provider Student in an Organized Health Care Education/Training Program | DX: G81.91 Hemiplegia, unspecified affecting right dominant side (principal); G95.20 Unspecified cord compression | CPT/HCPCS: 97110; 97140 ==

== ENCOUNTER → 2024-10-02 13:07 | Outpatient (BNVA) | payer MEDICARE, SELFPAY | PROVIDERS: PCP Family Medicine; Visit Provider Orthopaedic Surgery | DX: Z98.1 Arthrodesis status (principal) | CPT/HCPCS: 72040; 99213 ==